=== PATIENT | female | born 1985 ===

== ENCOUNTER 2019-04-25 05:49 | Day surgery (SDC) | payer BC ==
[2019-04-25] VITALS (14 sets, daily range): BP systolic 104–116; BP diastolic 59–77
[~2019-04-25] VITALS: Ht 160 cm; Wt 90.7 kg
[2019-04-25] MEDS ORDERED: CLINDAMYCIN HC300 MG ORAL (06:35)
[2019-04-25] MEDS ORDERED: PRENATAL FORMU1 EAC4 PO (06:35)
[2019-04-25 07:07] LABS: ANION GAP 8 mmol/L (5-15); BLOOD UREA NITROGEN 14 mg/dL (7-18); CALCIUM 9.3 MG/DL (8.5-10.1); CARBON DIOXIDE 24 MMOL/L (21-32); CHLORIDE 106 MMOL/L (98-107); CREATININE 0.8 MG/DL (0.55-1.30); INR 0.9 (0.9-1.1); POTASSIUM 3.9 MMOL/L (3.5-5.1); SODIUM 138 MMOL/L (136-145)
[2019-04-25] MEDS ORDERED: fentaNYL 100 mcg/2 mL IV ONE (07:09)
[2019-04-25] MEDS ORDERED: Midazolam 2mg/2ml Inj ONE (07:10)
[2019-04-25] MEDS ORDERED: Propofol 200mg/20ml IV ONE (07:10)
[2019-04-25 07:11] LABS: BASOPHILS % (AUTO) 1.5 % (0.0-2.0); EOSINOPHILS % (AUTO) 3.1 % (0.0-3.0); HEMATOCRIT 46.9 % (37.0-47.0); HEMOGLOBIN 15.9 G/DL (12.0-16.0); LYMPHOCYTES % (AUTO) 43.7 % (20.0-45.0); MEAN CORPUSCULAR VOLUME 86 FL (80-99); MONOCYTES % (AUTO) 7.7 % (1.0-10.0); PLATELET COUNT 195 K/UL (150-450); RED BLOOD COUNT 5.46 M/UL (4.20-5.40); RED CELL DISTRIBUTION WIDTH 11.3 % (11.6-14.8); WHITE BLOOD COUNT 5.6 K/UL (4.8-10.8)
--- NOTE | 2019-04-25 07:14 | Pre-Procedure Note/Attestation ---
Pre-Procedure Note/Attestation Complete Prior to Procedure Planned Procedure: left Procedure Narrative: Left index finger exploration with repair of injuries. Attestation I attest that I discussed the nature of the procedure; its benefits; risks and complications; and alternatives (and the risks and benefits of such alternatives ), prior to the procedure, with the patient (or the patient's legal community health program representative). I attest that, if there was a reasonable possibility of needing a blood transfusion, the patient (or the patient's legal community health program representative) was given the [facility] standardized written summary, pursuant to the Mayito Conchita Blood Safety Act ([place] Health and Safety Code # 1645, as amended). I attest that I re-evaluated the patient just prior to the surgery and that there has been no change in the patient's H&P, except as documented below: Clayton Copeland MD Apr 25, 2019 07:14
[2019-04-25] MEDS ORDERED: Lidocaine 1% Plain 30 ml INJ ONE (07:15)
[2019-04-25] MEDS ORDERED: Bacitracin 50000 Units Vial ONE (07:15)
[2019-04-25] MEDS ORDERED: Clindamycin 600mg 50 ML IV ONE (07:17)
[2019-04-25] MEDS ORDERED: TransDerm Scop 1.5mg/72HR Patch TDERMAL ONE ×2 (07:23→08:30)
[2019-04-25] MEDS ORDERED: Sterile Water Irrig 1000ml IRRIG ONE (07:30)
[2019-04-25] MEDS ORDERED: LR 1000ml ONE (07:30)
[2019-04-25] MEDS ORDERED: LR 1000ml 1,000 ML IVLG SCH (08:17)
--- NOTE | 2019-04-25 08:17 | Anethesia Preoperative Eval ---
Anesthesia Pre-op PMH/ROS General Date of Evaluation: Apr 25, 2019 Time of Evaluation: 07:22 Anesthesiologist: Svitlana ASA Score: ASA 2 Mallampati Score Class I : Soft palate, uvula, fauces, pillars visible Class II: Soft palate, uvula, fauces visible Class III: Soft palate, base of uvula visible Class IV: Only hard plate visible Mallampati Classification: Class II Surgeon: Min Diagnosis: L 2-d finger woud exploration with tendon repair Surgical Procedure: L 2-nd finger wound Anesthesia History: none Family History: no anesthesia problems Allergies: Coded Allergies: PENICILLINS (Verified Allergy, Severe, Shortness of Breath, 04/25/19) Medications: see eMAR Patient NPO?: Yes Past Medical History Cardiovascular: Denies: HTN, CAD, AR, valve dz, arrhythmia, other Pulmonary: Denies: asthma, COPD, LUL, other Gastrointestinal/Genitourinary: Reports: GERD - mild; Denies: CRI, ESRD, other Neurologic/Psychiatric: Reports: depression/anxiety; Denies: dementia, CVA, TIA, other Endocrine: Denies: DM, hypothyroidism, steroids, other HEENT: Denies: cataract (L), cataract (R), glaucoma, YAVAPAI-APACHE (L), YAVAPAI-APACHE (R), other Hematology/Immune: Denies: anemia, DVT, bleeding disorder, other Musculoskeletal/Integumentary: Denies: OA, RA, DJD, DDD, edema, other Other: obesity PMH Narrative: as above PSxH Narrative: breasts, Lap bend in and out Anesthesia Pre-op Phys. Exam Physician Exam Last Vital Signs Date Time Temp Pulse Resp B/P (MAP) Pulse Ox O2 Delivery O2 Flow Rate FiO2 04/25/19 06:38 Room Air 04/25/19 06:35 97.1 90 18 108/66 99 Constitutional: NAD Neurologic: CN 2-12 intact Cardiovascular: RRR, no M/R/G Respiratory: CTA Gastrointestinal: other - obesity Airway Exam Mallampati Score: Class II MO: full Neck: flexible ROM: full Teeth: intact Dentures: no upper, no lower Anesthesia Pre-op A/P Labs Hematology Test 04/25/19 06:33 White Blood Count 5.6 K/UL (4.8-10.8) Red Blood Count 5.46 M/UL (4.20-5.40) H Hemoglobin 15.9 G/DL (12.0-16.0) Hematocrit 46.9 % (37.0-47.0) Mean Corpuscular Volume 86 FL (80-99) Mean Corpuscular Hemoglobin 29.1 PG (27.0-31.0) Mean Corpuscular Hemoglobin Concent 33.9 G/DL (32.0-36.0) Red Cell Distribution Width 11.3 % (11.6-14.8) L Platelet Count 195 K/UL (150-450) Mean Platelet Volume 7.1 FL (6.5-10.1) Neutrophils (%) (Auto) 44.0 % (45.0-75.0) L Lymphocytes (%) (Auto) 43.7 % (20.0-45.0) Monocytes (%) (Auto) 7.7 % (1.0-10.0) Eosinophils (%) (Auto) 3.1 % (0.0-3.0) H Basophils (%) (Auto) 1.5 % (0.0-2.0) Coagulation Test 04/25/19 06:33 Prothrombin Time 9.9 SEC (9.30-11.50) Prothromb Time International Ratio 0.9 (0.9-1.1) Activated Partial Thromboplast Time 29 SEC (23-33) Chemistry Test 04/25/19 06:33 Sodium Level 138 MMOL/L (136-145) Potassium Level 3.9 MMOL/L (3.5-5.1) Chloride Level 106 MMOL/L (98-107) Carbon Dioxide Level 24 MMOL/L (21-32) Anion Gap 8 mmol/L (5-15) Blood Urea Nitrogen 14 mg/dL (7-18) Creatinine 0.8 MG/DL (0.55-1.30) Estimat Glomerular Filtration Rate > 60 mL/min (>60) Glucose Level 100 MG/DL (74-106) Calcium Level 9.3 MG/DL (8.5-10.1) Urine Test Test 04/25/19 06:10 Urine HCG, Qualitative Negative (NEGATIVE) Risk Assessment & Plan Assessment: ASA 2 Plan: GA with LMA PONV prevention Pre-Antibiotics Drug: Clidamycin 600 mg Given Within 1 Hr of Incision: Yes Time Given: 08:01 Fred Shane MD Apr 25, 2019 08:17
[2019-04-25] MEDS ORDERED: DiphenhydrAMINE 50mg/ml Inj IVP PRN (08:30)
[2019-04-25] MEDS ORDERED: Metoclopramide 10mg/2ml Inj IVP PRN (08:30)
[2019-04-25] MEDS ORDERED: Ketorolac 30mg Inj IV PRN (08:30)
[2019-04-25] MEDS ORDERED: Meperidine 50mg/ml Inj(FOR RIGORS ONLY) IV PRN (08:30)
--- NOTE | 2019-04-25 09:05 | Operative Note - PDOC ---
Operative Note Operative Note Procedure: Left index finger exploration with repair of FDP tendon Post-op Diagnosis: same as pre-op Surgeon: Min Anesthesia: general Specimen: none Complications: none Condition: stable Estimated Blood Loss: minimal Drains: none Implant(s) used?: No Clayton Copeland MD Apr 25, 2019 09:05
--- NOTE | 2019-04-25 09:07 | Immediate Post-Op Evaluation ---
Immediate Post-Op Evalulation Immediate Post-Op Evalulation Procedure: Revision of 2-nd R finger wound with tendon repair Date of Evaluation: Apr 25, 2019 Time of Evaluation: 09:06 IV Fluids: 800 Blood Products: none Estimated Blood Loss: <50 Urinary Output: none Blood Pressure Systolic: 114 Blood Pressure Diastolic: 56 Pulse Rate: 78 Respiratory Rate: 20 O2 Sat by Pulse Oximetry: 99 Temperature (Fahrenheit): 97.5 Pain Score (1-10): 1 Nausea: No Vomiting: No Complications none Patient Status: reacts, patent, none Hydration Status: adequate Fred Shane MD Apr 25, 2019 09:07
--- NOTE | 2019-04-25 12:28 | 48 Hour Post Anesthesia Eval ---
Post Anesthesia Evaluation Procedure: Revision of 2-nd R finger wound with tendon repair Date of Evaluation: Apr 25, 2019 Time of Evaluation: 10:50 Blood Pressure Systolic: 105 0: 67 Pulse Rate: 82 Respiratory Rate: 20 Temperature (Fahrenheit): 97.6 O2 Sat by Pulse Oximetry: 98 Airway: patent Nausea: No Vomiting: No Pain Intensity: 2 Hydration Status: adequate Cardiopulmonary Status: stable Mental Status/LOC: patient returned to baseline Follow-up Care/Observations: n/a Post-Anesthesia Complications: none Follow-up care needed: ready to discharge Fred Shane MD Apr 25, 2019 12:28
--- NOTE | 2019-04-25 17:00 | Operative Note - Dictated ---
DATE OF OPERATION: 04/25/2019 PREOPERATIVE DIAGNOSIS: Left volar index finger laceration with suspected flexor tendon injury. 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 SURGEON: Clayton Copeland M.D. ORACLE ENDECA CONSULTANT: None. ANESTHESIA: General. COMPLICATIONS: None. TOURNIQUET TIME: Total 40 minutes. DISPOSITION: Stable to the recovery room. INDICATIONS FOR SURGERY: This is a 33-year-old female with no significant past medical history, who sustained a cooking injury while she was cutting some vegetables and the knife slipped out of her hand and she sustained a laceration over the volar surface of her left index finger in zone II. She was seen at an outside facility where she was noted to have a deficiency in her flexor tendon function. However, she decided not to pursue treatment there and she came to the office to see me. On my exam, she had no evidence of any vascular or neurologic deficits. Sensation and motor functions appear to be intact. However, there appeared to be absence of flexion of the distal interphalangeal joint consistent with a flexor digitorum profundus tendon laceration. Her ability to flex the proximal interphalangeal joint was intact suggesting that there was an intact flexor digitorum superficialis tendon of that finger. Given these findings, I felt that she needed to undergo exploration and repair of likely flexor digitorum profundus tendon laceration. She understood the risks and benefits of surgery and agreed to proceed. DETAILS OF THE OPERATION: The patient was brought to the operating room and laid in the supine position on the operating room table. Her left upper extremity was prepped and draped in a sterile and usual fashion. We used an Esmarch to exsanguinate the extremity and tourniquet was placed at 250 mmHg. A Redd incisions were designed over the volar surface of the left index finger and a #15 blade was then used to make these incisions to expose the underlying structures. Upon entering the wound, we noticed there was some hematoma underneath the paratenon. Once this area was better visualized, we noticed the transection of the flexor digitorum profundus tendon in zone II. The FDS appeared to be intact as was suggested on the patient's preoperative physical exam. The distal tendon can be usually visualized by flexion of the DIP joint and fortunately for the patient, the proximal portion of the FDP tendon had only retracted down to the edge of the A2 kristian. As such, it was easily retrievable to be able to perform a repair of the tendon. A modified Muhammad suture was used to reapproximate the cut tendon edges using a 4-0 Prolene suture and then following this, a 5-0 Prolene suture was used to perform an epitendinous reinforcement of the modified Muhammad repair. The tendon was then interrogated and appeared to have good excursion and good pull on the distal phalanx to allow for good DIP joint flexion. Once this was done, the wound was copiously irrigated with pulse lavage. Then we proceeded to put the tourniquet down, achieved hemostasis, and then following this, the wound was closed using a 4-0 Vicryl sutures with closure of the deep layers and then a running 4-0 Prolene was used to close the skin and the patient was then placed in a bulky dressing with the fingers in full flexion. The patient will then be seen in my office in three to four days to initiate active hand therapy to optimize hand function. She tolerated the procedure well and there were no complications. Clayton Copeland M.D. DR: AGUSTIN JOB#: [id number] CC:
== END 2019-04-25 10:45 | disposition home or self-care (01) ==
LOC: SUR 05:49
DX: S66.121A Laceration of flexor muscle, fascia and tendon of left index finger at wrist and hand level, initial encounter (principal); K21.9 Gastro-esophageal reflux disease without esophagitis; E66.9 Obesity, unspecified; F32.9 Major depressive disorder, single episode, unspecified; F41.9 Anxiety disorder, unspecified; Z88.0 Allergy status to penicillin; Z68.35 Body mass index [BMI] 35.0-35.9, adult
CPT/HCPCS: 26356; 36415; 80048; 81025; 85025; 85610; 85730; J1885; J2001; J2175; J2250; J2405; J2704; J3010; 94003; 94150; S0077